=== PATIENT | male | born 1975 | race Two or more races ===

== ENCOUNTER 2019-04-20 17:51 | Emergency (ER) | payer OTHER ==
[~2019-04-20] VITALS: Ht 172.7 cm; Wt 87.1 kg
== END 2019-04-20 23:19 | disposition home or self-care (01) ==
LOC: ER 17:51
DX: N20.0 Calculus of kidney (principal)

== ENCOUNTER 2024-05-02 22:33 | Emergency (ER) | payer OTHER ==
[~2024-05-02] VITALS: Ht 172.7 cm; Wt 74.8 kg
[2024-05-02] MEDS ORDERED: NAPROXEN SODIU275 MG (22:36)
[2024-05-02 22:37] VITALS: BP 145/81
[2024-05-02] MEDS ORDERED: FAMOTIDINE/PF 20 MG in 0.9 % SODIUM CHLORIDE 8 ML IV PUSH STA (23:02)
[2024-05-02] MEDS ORDERED: 0.9 % SODIUM CHLORIDE 1,000 ML IV SCH (23:15)
[2024-05-02] MEDS ORDERED: DIPHENOXYLATE HCL/ATROPINE 1 UDTAB TABLET PO ONE (23:15)
[2024-05-02] MEDS ORDERED: ONDANSETRON HCL 2 MG/ML VIAL IV ONE (23:15)
[2024-05-02 23:58] LABS: HEMATOCRIT 48.5 % (39.0-48.0); HEMOGLOBIN 16.9 g/dL (13-16.00); MEAN CELL VOLUME 85.2 fL (80.0-100.00); MEAN CORPUSCULAR HEMOGLOBIN 29.6 pg (27.00-32.0); MEAN CORPUSCULAR HGB CONC 34.8 g/dl (32.0-36.0); PLATELET COUNT 240 K/uL (150-450); RED CELL DISTRIBUTION WIDTH 14.1 % (11.5-14.5)
[2024-05-03 00:13] LABS: ALBUMIN 4.5 gm/dL (3.4-5.0); BILIRUBIN TOTAL 0.81 mg/dL (0.3-1.2); CALCIUM 9.4 mg/dL (8.5-10.1); CREATININE SERUM 0.91 mg/dL (0.70-1.30); GFR 89.3; GLOBULINA 4.1 G/DL (2.4-3.5); POTASSIUM 3.91 mEq/L (3.5-5.1); TOTAL PROTEIN 8.6 gm/dL (6.4-8.2)
[2024-05-03] MEDS ORDERED: LACTOBACILLUS ACIDOPHILUS 1 CAP CAP PO STA (02:25)
[2024-05-03] MEDS ORDERED: HYOSCYAMINE SULFATE 0.125 MG TAB.SUBL SL STA (02:25)
[2024-05-03] MEDS ORDERED: PEPCID40 MG PO ×2 (06:39→06:41)
[2024-05-03] MEDS ORDERED: LEVSIN/SL0.125 MG SL (06:39)
[2024-05-03] MEDS ORDERED: ONDANSETRON ODT4 MG PO ×2 (06:40→06:42)
[2024-05-03] MEDS ORDERED: INTESTINEX680 M2 PO (06:42)
[2024-05-03 07:34] VITALS: O2SAT 99
== END 2024-05-03 07:35 ==
LOC: ER 22:35
PROVIDERS: General Practice
DX: K52.89 Other specified noninfective gastroenteritis and colitis (principal); I10 Essential (primary) hypertension; Z20.822 Contact with and (suspected) exposure to COVID-19
CPT/HCPCS: 36415; 96365; 96366; 99282; J2405; J7030